=== PATIENT | female | born 1940 | race Caucasian/White ===

== ENCOUNTER 2023-08-31 11:34 | Inpatient (IN) | payer OTHER ==
[2023-08-31] VITALS (7 sets, daily range): BP systolic 103–135; BP diastolic 36–68; PULSE 49–82; RESP 15–52; TEMP 97–99.7; O2SAT 92–100
[~2023-08-31] VITALS: Ht 149.9 cm; Wt 73.5 kg
[2023-08-31] MEDS ORDERED: HYDR5TAB PO (12:12)
[2023-08-31] MEDS ORDERED: ALBU-118 INH (12:12)
[2023-08-31] MEDS ORDERED: HYDR-3320 PO (12:12)
[2023-08-31] MEDS ORDERED: AZIT250C11 PO (12:12)
[2023-08-31] MEDS ORDERED: LEVO0.0712 PO (12:12)
[2023-08-31] MEDS ORDERED: GLU500 PO (12:12)
[2023-08-31] MEDS ORDERED: CARV12.5 PO (12:12)
[2023-08-31] MEDS: NACL 0.9% 1,000 ML IV SCH ×2 (13:17→16:02)
[2023-08-31 13:18] LABS: APPEARANCE,URINE CLEAR (CLEAR); BILIRUBIN,URINE NEGATIVE (NEGATIVE); BLOOD, URINE TRACE-I (NEGATIVE); COLOR,URINE YELLOW (YELLOW); LEUKOCYTE ESTERASE ,URINE 3+ (NEGATIVE); NITRITE, URINE NEGATIVE (NEGATIVE); PH,URINE 6.5 (5.0-9.0); PROTEIN,URINE NEGATIVE (NEGATIVE); UGLUCOSE NEGATIVE (NEGATIVE); UROBILINOGEN,URINE 0.2 EU/dL (0.2 - 1)
[2023-08-31 13:23] LABS: BASOPHILS % (AUTO) 0.3 % (0.0-2.0); EOSINOPHILS # (AUTO) 0.1 K/uL (0-0.4); EOSINOPHILS % (AUTO) 0.7 % (0.0-4.0); HEMATOCRIT 41.6 % (36-48); HEMOGLOBIN 14.1 g/dL (12.0-16.0); LYMPHOCYTES # (AUTO) 0.8 K/uL (2.5-16.5); LYMPHOCYTES % (AUTO) 10.7 % (20.5-51.1); MEAN CORPUSCULAR HEMOGLOBIN 32 pg (27-31); MEAN CORPUSCULAR HGB CONC 34 g/dL (33-37); MEAN CORPUSCULAR VOLUME 95.5 fL (80-94); MONOCYTES # (AUTO) 0.5 K/uL (0.8-1.0); MONOCYTES % (AUTO) 6.9 % (1.7-9.3); NEUTROPHILS # (AUTO) 5.8 K/uL (1.8-7.7); NEUTROPHILS % (AUTO) 81.4 % (42.2-75.2); PLATELET COUNT (AUTO) 226 K/uL (140-450); RED BLOOD CELL COUNT(AUTO) 4.35 MIL/uL (4.20-5.40); WHITE BLOOD COUNT (AUTO) 7.2 K/uL (4.8-10.8)
[2023-08-31 13:32] LABS: ANION GAP 10.7 (8-16); CALCIUM 8.5 mg/dL (8.5-10.1); CARBON DIOXIDE 28.1 mmol/L (21-32); CHLORIDE 96 mmol/L (98-107); CREATININE 0.8 mg/dL (0.6-1.3); GLUCOSE 115 mg/dL (74-106); POTASSIUM 3.8 mmol/L (3.5-5.1); SODIUM SERUM 131 mmol/L (136-145); UREA NITROGEN, BLOOD 26 mg/dL (7-18)
[2023-08-31 13:34] LABS: BACTERIA,URINE 10-30 (MOD) /HPF (None Seen); SQUAMOUS EPITHELIAL CELL,UR 0-3 (FEW) /LPF (0-3 (FEW))
[2023-08-31 13:42] LABS: LACTIC ACID 1.3 mmol/L (0.4-2.0)
[2023-08-31 13:53] LABS: FLU A ANTIGEN negative (NEGATIVE); FLU B ANTIGEN negative (NEGATIVE)
[2023-08-31 13:57] LABS: ALANINE AMINOTRANSFERASE 23 U/L (12-78); ALBUMIN 3.5 g/dL (3.4-5.0); ALKALINE PHOSPHATASE 55 U/L (50-136); ASPARTATE AMINOTRANSFERASE 23 U/L (15-37); BILIRUBIN,DIRECT 0.1 mg/dL (0.0-0.3); CREATINE KINASE, TOTAL 52 U/L (26-192); LIPASE 57 U/L (16-77); TOTAL BILIRUBIN 0.6 mg/dL (0.0-1.0)
[2023-08-31] MEDS ORDERED: cefTRIAXone 1,000 MG VIAL ONE (14:17)
[2023-08-31] MEDS ORDERED: HYDROcodone/APAP 5/325 MG 1 TAB TAB PO PRN (15:05)
[2023-08-31] MEDS ORDERED: ONDANSETRON 4 MG/2 ML VIAL IVP PRN (15:05)
[2023-08-31] MEDS ORDERED: ACETAMINOPHEN 325 MG TAB PO PRN (15:05)
[2023-08-31] MEDS ORDERED: MORPHINE SULFATE 4 MG/ML SYR IVP PRN (15:05)
[2023-08-31] MEDS: Z-GUARD PASTE TP PRN (19:21)
[2023-08-31] MEDS: PIPERACILLIN/TAZOBACTAM 3.375 GM in DEXTROSE 5% 50 ML IV SCH (20:50)
[2023-08-31] MEDS: HYDROCORTISONE 10 MG TAB PO SCH (20:51)
[2023-08-31] MEDS: PIPERACILLIN/TAZOBACTAM 3.375 GM VIAL IV ONE (21:00)
[2023-09-01] VITALS (11 sets, daily range): BP systolic 128–155; BP diastolic 51–64; PULSE 46–68; RESP 15–18; TEMP 97.6–98.6; O2SAT 94–100
[2023-09-01] MEDS: PIPERACILLIN/TAZOBACTAM 3.375 GM VIAL IV ONE (05:06)
[2023-09-01 05:36] LABS: BASOPHILS % (AUTO) 0.3 % (0.0-2.0); EOSINOPHILS % (AUTO) 0.2 % (0.0-4.0); HEMATOCRIT 36.6 % (36-48); HEMOGLOBIN 12.5 g/dL (12.0-16.0); LYMPHOCYTES # (AUTO) 1.4 K/uL (2.5-16.5); LYMPHOCYTES % (AUTO) 26.9 % (20.5-51.1); MEAN CORPUSCULAR HEMOGLOBIN 33 pg (27-31); MEAN CORPUSCULAR HGB CONC 34 g/dL (33-37); MONOCYTES # (AUTO) 0.5 K/uL (0.8-1.0); MONOCYTES % (AUTO) 8.5 % (1.7-9.3); NEUTROPHILS # (AUTO) 3.4 K/uL (1.8-7.7); NEUTROPHILS % (AUTO) 64.1 % (42.2-75.2); PLATELET COUNT (AUTO) 196 K/uL (140-450); RED BLOOD CELL COUNT(AUTO) 3.85 MIL/uL (4.20-5.40); RED CELL DISTRIBUTION WIDTH 14.2 % (11.6-13.7); WHITE BLOOD COUNT (AUTO) 5.3 K/uL (4.8-10.8)
[2023-09-01 05:57] LABS: ANION GAP 11.7 (8-16); CALCIUM 8.1 mg/dL (8.5-10.1); CARBON DIOXIDE 27.6 mmol/L (21-32); CHLORIDE 103 mmol/L (98-107); CREATININE 0.7 mg/dL (0.6-1.3); GLUCOSE 107 mg/dL (74-106); POTASSIUM 3.3 mmol/L (3.5-5.1); SODIUM SERUM 139 mmol/L (136-145); UREA NITROGEN, BLOOD 13 mg/dL (7-18)
[2023-09-01] MEDS ORDERED: hydrALAZINE 10 MG TAB PO PRN (08:35)
[2023-09-01] MEDS: POTASSIUM CHLORIDE 10 MEQ TABER PO SCH (08:59)
[2023-09-02] VITALS: BP 148/54; PULSE 69; PULSE 75; RESP 18; TEMP 97.3; O2SAT 94
[2023-09-02 04:00] VITALS: BP 103/99; PULSE 72; PULSE 74; RESP 22; TEMP 97.6; O2SAT 93
[2023-09-02 05:54] LABS: BASOPHILS % (AUTO) 0.2 % (0.0-2.0); EOSINOPHILS % (AUTO) 0.1 % (0.0-4.0); HEMATOCRIT 36.6 % (36-48); HEMOGLOBIN 12.6 g/dL (12.0-16.0); LYMPHOCYTES # (AUTO) 1.1 K/uL (2.5-16.5); LYMPHOCYTES % (AUTO) 11.2 % (20.5-51.1); MEAN CORPUSCULAR HEMOGLOBIN 33 pg (27-31); MEAN CORPUSCULAR HGB CONC 34 g/dL (33-37); MEAN CORPUSCULAR VOLUME 94.9 fL (80-94); MONOCYTES # (AUTO) 0.5 K/uL (0.8-1.0); MONOCYTES % (AUTO) 5.3 % (1.7-9.3); NEUTROPHILS # (AUTO) 8.5 K/uL (1.8-7.7); NEUTROPHILS % (AUTO) 83.2 % (42.2-75.2); PLATELET COUNT (AUTO) 209 K/uL (140-450); RED BLOOD CELL COUNT(AUTO) 3.85 MIL/uL (4.20-5.40); RED CELL DISTRIBUTION WIDTH 14.1 % (11.6-13.7); WHITE BLOOD COUNT (AUTO) 10.2 K/uL (4.8-10.8)
[2023-09-02 06:14] LABS: ANION GAP 9.5 (8-16); CARBON DIOXIDE 27.9 mmol/L (21-32); CHLORIDE 102 mmol/L (98-107); CREATININE 0.6 mg/dL (0.6-1.3); GLUCOSE 111 mg/dL (74-106); POTASSIUM 3.4 mmol/L (3.5-5.1); SODIUM SERUM 136 mmol/L (136-145); UREA NITROGEN, BLOOD 13 mg/dL (7-18)
[2023-09-02 08:00] VITALS: BP 110/87; PULSE 70; PULSE 78; RESP 20; TEMP 97.8; O2SAT 94
[2023-09-02] MEDS: POTASSIUM CHLORIDE 10 MEQ TABER PO SCH (10:47)
[2023-09-02 12:00] VITALS: BP 106/74; PULSE 70; PULSE 79; RESP 19; TEMP 97.3; O2SAT 96
[2023-09-02] MEDS ORDERED: AMOX-1230 PO (14:40)
[2023-09-02 15:11] VITALS: BP 108/89; PULSE 69; RESP 19; TEMP 97.6
== END 2023-09-02 17:02 | disposition home or self-care (01) | DRG 391 ==
LOC: MED 11:34 → MTU 15:22 → OBSVTOIN 09-01 20:19
PROVIDERS: ADMIT Student in an Organized Health Care Education/Training Program; ATTEND Student in an Organized Health Care Education/Training Program
DX: K52.9 Noninfective gastroenteritis and colitis, unspecified (principal); J96.01 Acute respiratory failure with hypoxia; N39.0 Urinary tract infection, site not specified; E87.1 Hypo-osmolality and hyponatremia; E23.0 Hypopituitarism; N17.9 Acute kidney failure, unspecified; Z20.822 Contact with and (suspected) exposure to COVID-19; E87.6 Hypokalemia; I10 Essential (primary) hypertension; E11.9 Type 2 diabetes mellitus without complications; Z79.899 Other long term (current) drug therapy
CPT/HCPCS: G0378 ×9; 36415; 71045; 80048; 80076; 81001; 82550; 82948; 83605; 83690; 83880; 84484; 85025; 87040; 87081; 87086; 93005; 96361; 96374; 99285; J0696; J1644; J2405; J2543; J7060